=== PATIENT | female | born 1970 | race Two or more races ===

== ENCOUNTER 2024-10-18 15:46 | Inpatient (IN) | payer BC, SELFPAY ==
--- NOTE | 2024-10-18 15:59 | XR_ITS ---
Examination: CT abdomen with intravenous contrast CT pelvis with intravenous contrast 2-D coronal reconstructions 2-D sagittal reconstructions Date and time of exam:October 18, 20247 hrs. Indications: Onset right lower abdominal pain and vomiting beginning 3 days ago. CTDI: vol (mGy) 11.9 DLP: (mGycm) 377 Technique: Multiple axial sections of the abdomen and pelvis have been obtained. 64 slice high-resolution scanner used. 3 mm axial sections have been obtained, post intravenous injection 60 cc Isovue-370 2-D sagittal, coronal reconstructions obtained. Low dose protocols were performed. One or more of the following dose reduction techniques were used; automated exposure control, adjustment of the mA and/or KV according to patient size, use of iterative reconstruction technique. Findings: No focal liver or splenic lesion Absent gallbladder No common bile duct stones No pancreatic or adrenal mass No renal process Fluid-filled enlarged inflamed appendix medial to the cecum, axial images 125 through 134 No pelvic abscess No pelvic mass Urinary bladder intact Impression: Acute appendicitis Negative for pelvic abscess
--- NOTE | 2024-10-18 16:00 | PD.EDRME ---
Rapid Medical Screening Exam RME Arrival date/time: 10/18/24 15:46 53-year-old female reports with complaints of right lower quadrant abdominal pain nausea and vomiting x 3 days Chief Complaint: General Adult/Misc Complain Time Seen by Provider: 10/18/24 15:53
[2024-10-18 16:04] VITALS: BP 132/85; PULSE 89; RESP 19; TEMP 37.1; O2SAT 97; BMI 33.6
[2024-10-18 16:12] LABS: Basophils # (Auto) 0.1 Thou/mm3 (0.0-0.2); Basophils % (Auto) 0 % (0-2.5); Eosinophils % (Auto) 0 % (0-10); Hematocrit 43.8 % (36.0-46.0); Hemoglobin 15.2 g/dL (12.0-16.0); Immature Granulocytes % (Auto) 0 % (0-0); Immature Granulocytes Auto 0.04 Thou/mm3 (0.00-0.00); Lymphocytes # (Auto) 1.3 Thou/mm3 (1.0-4.8); Lymphocytes % (Auto) 9 % (10-50); Mean Corpuscular HGB Conc 34.7 g/dl (31.0-37.0); Mean Corpuscular Hemoglobin 29.9 pg (25.0-35.0); Mean Corpuscular Volume 86 fL (80-100); Monocytes # (Auto) 0.7 Thou/mm3 (0.0-0.8); Monocytes % (Auto) 5 % (0-12); Neutrophils # (Auto) 12.1 Thou/mm3 (1.8-7.7); Neutrophils % (Auto) 85 % (37-80); Nucleated Red Blood Cell % 0 /100 WBC (0); Platelet Count 291 Thou/mm3 (140-440); RDW Standard Deviation 39.9 fL (36.4-46.3); Red Blood Count 5.09 Miln/mm3 (4.00-5.20); White Blood Count 14.3 Thou/mm3 (3.6-11.0)
[2024-10-18 16:41] LABS: Alanine Aminotransferase 10 U/L (10-49); Albumin/Globulin Ratio 1.7 (1.2-2.2); Alkaline Phosphatase 82 U/L (46-116); Anion Gap 8 (7-16); Aspartate Amino Transferase 10 U/L (0-34); BUN/Creatinine Ratio 19 Ratio (12-20); Bilirubin,Total 1.9 mg/dL (0.3-1.2); Blood Urea Nitrogen 13 mg/dL (9-23); Carbon Dioxide 27.4 mMol/L (20.0-31.0); Chloride 104 mMol/L (98-107); Creatinine (Component) 0.7 mg/dL (0.6-1.3); Estimated Creatinine Clearance 87.4 mL/min (>60); Globulin 2.9 gm/dL (2.3-3.5); Glucose 127 mg/dL (74-106); Osmolality,Calculated 279 (275-295); Potassium 4.4 mMol/L (3.4-5.1); Sodium 139 mMol/L (136-145); Total Protein 7.9 gm/dL (5.7-8.2); eGFR > 60 See Note
[2024-10-18 17:05] LABS: Collection Type, Urine Clean Catch; RBC,Urine 0 /hpf (0-3); Squamous Epithelial Cell,Urine 0 /hpf (0-5); WBC,Urine 0 /hpf (0-5)
[2024-10-18 17:26] LABS: Bilirubin,Urine Negative (Negative); Blood,Urine 1+ (Negative); Clarity,Urine Turbid (Clear/Hazy); Color,Urine Yellow (Lt Yel-Yel); Culture Indicated,Urine Not Indicated; Glucose, Urine Trace (Negative); Ketones,Urine 4+ (Negative); Leukocyte Esterase,Urine Negative (Negative); Nitrite,Urine Negative (Negative); Protein,Urine 1+ (Neg - Trace); Specific Gravity,Urine 1.032 (1.001-1.035)
--- NOTE | 2024-10-18 19:43 | PD.EDADULT ---
ED General RME/HPI General Chief complaint: General Adult/Misc Complain Stated complaint: SENT BY PCP TO R/O APPENDICITIS Time Seen by Provider: 10/18/24 15:53 Source: patient Arrival date/time: 10/18/24 15:46 Mode of arrival: ambulatory Limitations: no limitations RME / HPI RME / HPI narrative: 10/18/24 15:46 53-year-old female reports with complaints of right lower quadrant abdominal pain nausea and vomiting x [address] Balbuena?s Main ED Evaluation: 53-year-old female with a history of gallstones, status post cholecystectomy, presents with right lower quadrant pain since Friday. She describes the pain initially as hard cramping, which worsened on Friday, accompanied by nausea. This morning, she awoke with persistent pain that had not subsided, followed by vomiting, prompting her to seek medical evaluation. She reports decreased oral intake due to a lack of appetite. She denies any left-sided pain. She rates her pain as 7-8/10. Notable allergy to sulfa. Related Data Allergies Allergy/AdvReac Type Severity Reaction Status Date / Time Sulfa (Sulfonamide Allergy Mild SWOLLEN Verified 10/18/24 15:50 Antibiotics) LIPS Review of Systems Review of Systems Systems Reviewed: All systems reviewed, normal except as documented Past Medical History Social History SMOKING STATUS: Former smoker ED Exam Narrative Physical exam: GENERAL APPEARANCE: alert and oriented x 4, well-developed, well-nourished, no acute distress VITALS: All vitals were reviewed and the pulse ox is 97% on room air, which is normal according to my interpretation. HEENT: Normocephalic, atraumatic; pupils equal, round, reactive to light; EOMI; mucous membranes pink, moist; oropharynx clear NECK: Supple LUNGS: CTABL; no wheezes, no rales, no rhonchi HEART: Regular rate, regular rhythm; normal S1, S2; no murmurs ABDOMEN: non distended; normal BS; soft, moderate to severe tenderness on palpation over McBurney's point with voluntary guarding but no rebound tenderness; no masses, no organomegaly, no hernia BACK: no CVA tenderness EXTREMITIES: atraumatic; no edema NEUROLOGIC: awake; alert and oriented x4; cranial nerves II-XII grossly intact; no focal sensory or motor deficits PSYCHIATRIC: appropriate mood and affect SKIN: warm, dry, normal color; no rashes General Limitations: Present no limitations Course Quality Measures none Orders Category Date Time Status CT Screening NOW Care 10/18/24 16:00 Active Seeing Eye Dog Teacher STAT Care 10/18/24 19:54 Active Continuous Pulse Oximetry STAT Care 10/18/24 19:54 Completed EKG (ED ONLY) *Do not use* NOW Care 10/18/24 19:54 Active Insert IV STAT Care 10/18/24 19:54 Active NPO STAT Care 10/18/24 19:[address] abdomen pelvis w con Stat Exams 10/18/24 15:59 Completed EKG (ED Only) Stat Exams 10/18/24 19:54 Ordered XR chest 1V portable Stat Exams 10/18/24 19:57 Completed CBC Stat Lab 10/18/24 16:03 Completed CMP [Comprehensive Metabolic Panel] Stat Lab 10/18/24 16:03 Completed Lipase Stat Lab 10/18/24 16:03 Completed Magnesium Stat Lab 10/18/24 16:03 Completed Partial Thromboplastin Time Stat Lab 10/18/24 16:03 Completed Prothrombin Time with INR Stat Lab 10/18/24 16:03 Completed UA, C/S IF [Urinalysis, C/S if Indicated] Stat Lab 10/18/24 16:25 Completed HYDROmorphone INJ [Dilaudid Inj] Med 10/18/24 20:00 Active 0.5 mg IVP Q30MIN PRN Ondansetron Inj [Zofran Inj] Med 10/18/24 19:54 Discontinued 4 mg IV X1 ONE Piper/Tazo Inj [Zosyn Inj] 4.5 gm Med 10/18/24 21:16 Discontinued Sodium Chloride 0.9% (Pop) [NS 0.9% mini bag] 100 ml IV X1 Sodium Chloride 0.9% 1000 ml [Ns] 1,000 ml Med 10/18/24 19:54 Discontinued IV 999 mls/hr Vital Signs Vital signs: Vital Signs Temperature 98.7 F 10/18/24 16:04 Pulse Rate 89 10/18/24 16:04 Respiratory Rate 19 10/18/24 16:04 Blood Pressure 132/85 H 10/18/24 16:04 Pulse Oximetry (%) 97 10/18/24 16:04 Oxygen Delivery Method Room Air 10/18/24 16:04 [facility] Patient data External records reviewed:: None Clinical information provided by:: patient Social determinants that could affect healthcare access:: none Patient has the following chronic illnesses:: na How is presenting disease/condition affected by chronic disease/condition?: no chronic disease Evaluation data The following diagnostics were reviewed and interpreted by me:: lab results and radiology exam(s) Lab and/or radiology exams considered but not ordered:: na Interpretation Summary: CXR shows normal cardiac silhouette, normal sharp diaphragmatic edge, no infiltrates, normal costophrenic angles, according to my interpretation. [facility] Report Signed Patient: SHAKEEL WELCH Record#: [id number] Birthdate: 1970 Age/Sex: 53 / F Location: [facility] Attending Dr: Ordering Physician: Farzad Cano PA-C Date of Service: 10/18/24 Procedure(s): CT abdomen pelvis w con Accession Number(s): [id number] cc: Alexis Riggs MD; NO PRIMARY/FAMILY,PHYSICIAN; Farzad Cano PA-C~ Examination: CT abdomen with intravenous contrast CT pelvis with intravenous contrast 2-D coronal reconstructions 2-D sagittal reconstructions Date and time of exam:October 18, [id number] hrs. Indications: Onset right lower abdominal pain and vomiting beginning 3 days ago. CTDI: vol (mGy) 11.9 DLP: (mGycm) 377 Technique: Multiple axial sections of the abdomen and pelvis have been obtained. 64 slice high-resolution scanner used. 3 mm axial sections have been obtained, post intravenous injection 60 cc Isovue-370 2-D sagittal, coronal reconstructions obtained. Low dose protocols were performed. One or more of the following dose reduction techniques were used; automated exposure control, adjustment of the mA and/or KV according to patient size, use of iterative reconstruction technique. Findings: No focal liver or splenic lesion Absent gallbladder No common bile duct stones No pancreatic or adrenal mass No renal process Fluid-filled enlarged inflamed appendix medial to the cecum, axial images 125 through 134 No pelvic abscess No pelvic mass Urinary bladder intact Impression: Acute appendicitis Negative for pelvic abscess Dictated By: Alexis Riggs MD Signed By: <Electronically signed by Alexis Riggs MD in OV> 10/18/24 6021 Medications Medications considered but not ordered:: na Medication administrations:: Medication Administration History Hydromorphone HCl (Hydromorphone Inj 2 Mg/Ml Vial) 0.5 mg IVP Q30MIN PRN PRN Reason: PAIN Stop: 10/23/24 19:59 Last Admin: 10/18/24 21:28 Dose: 0.5 mg Documented By: Admin: 10/18/24 20:26 Dose: 0.5 mg Documented By: WO Discontinued Medications Sodium Chloride (Ns) 1,000 mls @ 999 mls/hr IV .Q1H1M ONE Stop: 10/18/24 20:54 Last Infusion: 10/18/24 21:17 Dose: Infused Documented By: Admin: 10/18/24 20:16 Dose: 999 mls/hr Documented By: WO Piperacillin Sod/Tazobactam (Sod 4.5 gm/ Sodium Chloride) 100 mls @ 200 mls/hr IV X1 ONE Stop: 10/18/24 21:45 Last Infusion: 10/18/24 21:59 Dose: Infused Documented By: Admin: 10/18/24 21:29 Dose: 200 mls/hr Documented By: WO Ondansetron HCl (Ondansetron Inj 2 Mg/Ml Inj 2 Ml) 4 mg IV X1 ONE; Protocol Stop: 10/18/24 19:55 Last Admin: 10/18/24 20:27 Dose: 4 mg Documented By: ROBERT as above, if any Consultations Consultation(s) initiated? (list below): Yes Consultation #1 (Physician, Specialty, Details): Discussed case with [Dr. Clay] from [general surgery] regarding [consultation]. Discussed patients ED course, exam findings, labs, and radiology results. Will admit the patient. Time: 22:07 Diagnosis Differential Diagnosis ED Complaint MDM: see narrative Most likely diagnosis given after review of the tests above:: acute appendicitis Admission Indicated Admission indicated?: indicated Explain why admission is indicated or not indicated:: Admission criteria met. Admission Request Was there a request for admission?: Yes Admission Attestation Admission request attestation: Discussed case with [] from Hospitalist service regarding admission. Discussed patients ED course, exam findings, labs, and radiology results. The Hospitalist [agrees,declines] to accept the patient for admission. Disposition Plan Disposition Plan: Admit Medical Decision Making MDM Narrative MDM Narrative: Differential diagnoses include acute appendicitis, tubo-ovarian abscess, ovarian torsion, and small bowel obstruction (SBO). Scribe Attestation: I, Brenden Brushang, am scribing for and in the presence of Dr. Balbuena. Provider Notation: Although this document has been carefully reviewed, there may still be some phonetic and other typographical errors. These errors are purely grammatical due to imperfections in the software program and should not be construed in any way to compromise the substance of the patient's medical care during this visit. Differential Diagnosis Differential Diagnosis: see narrative Medical Records Medical records reviewed: Yes I reviewed the patient's medical records. Lab Data Lab results reviewed: Yes I reviewed the patient's lab results. 10/18/24 16:03 10/18/24 16:03 Labs: Lab Results 10/18/24 10/18/24 Range/Units 16:03 16:25 WBC 14.3 H (3.6-11.0) Thou/mm3 RBC 5.09 (4.00-5.20) Miln/mm3 Hgb 15.2 (12.0-16.0) g/dL Hct 43.8 (36.0-46.0) % MCV 86 (80-100) fL MCH 29.9 (25.0-35.0) pg MCHC 34.7 (31.0-37.0) g/dl RDW Std Deviation 39.9 (36.4-46.3) fL Plt Count 291 (140-440) Thou/mm3 Neut % (Auto) 85 H (37-80) % Lymph % (Auto) 9 L (10-50) % Garfield % (Auto) 5 (0-12) % Eos % (Auto) 0 (0-10) % Baso % (Auto) 0 (0-2.5) % Neut # (Auto) 12.1 H (1.8-7.7) Thou/mm3 Lymph # (Auto) 1.3 (1.0-4.8) Thou/mm3 Garfield # (Auto) 0.7 (0.0-0.8) Thou/mm3 Eos # (Auto) 0.0 (0.0-0.5) Thou/mm3 Baso # (Auto) 0.1 (0.0-0.2) Thou/mm3 Immature Gran # (Auto) 0.04 H (0.00-0.00) Thou/mm3 Absolute Nucleated RBC 0.00 (0.00-0.00) Thou/mm3 Immature Gran % 0 (0-0) % Nucleated RBC % 0 (0) /100 WBC PT 11.5 (9.0-12.2) Seconds INR 1.1 (0.9-1.3) APTT 29.3 (22.0-36.0) Seconds Sodium 139 (136-145) mMol/L Potassium 4.4 (3.4-5.1) mMol/L Chloride 104 (98-107) mMol/L Carbon Dioxide 27.4 (20.0-31.0) mMol/L Anion Gap 8 (7-16) BUN 13 (9-23) mg/dL Creatinine 0.7 (0.6-1.3) mg/dL Estim Creat Clear Calc 87.4 (>60) mL/min eGFR > 60 (60 - ) See Note BUN/Creatinine Ratio 19 (12-20) Ratio Glucose 127 H (74-106) mg/dL Calculated Osmolality 279 (275-295) Calcium 10.0 (8.3-10.6) mg/dL Corrected Calcium 10.0 (8.5-10.1) mg/dL Magnesium 2.0 (1.6-2.6) mg/dL Total Bilirubin 1.9 H (0.3-1.2) mg/dL AST 10 (0-34) U/L ALT 10 (10-49) U/L Alkaline Phosphatase 82 (46-116) U/L Total Protein 7.9 (5.7-8.2) gm/dL Albumin 5.0 (3.5-5.0) gm/dL Globulin 2.9 (2.3-3.5) gm/dL Albumin/Globulin Ratio 1.7 (1.2-2.2) Lipase 48 (12-53) U/L Ur Collection Type Clean Catch Urine Color Yellow (Lt Yel-Yel) Urine Clarity Turbid A (Clear/Hazy) Urine pH 6.0 (5.0-7.0) Ur Specific [place] 1.032 (1.001-1.035) Urine Protein 1+ A (Neg - Trace) Urine Glucose (UA) Trace (Negative) Urine Ketones 4+ A (Negative) Urine Blood 1+ A (Negative) Urine Nitrite Negative (Negative) Urine Bilirubin Negative (Negative) Urine Urobilinogen (Auto) 2.0 (0.0-1.0) mg/dL Ur Leukocyte Esterase Negative (Negative) Urine RBC 0 (0-3) /hpf Urine WBC 0 (0-5) /hpf Ur Squamous Epith Cells 0 (0-5) /hpf Urine Bacteria None (None) Ur Culture Indicated? Not Indicated Radiology Data Radiology results reviewed: Yes I reviewed the patient's radiology results. Discharge Plan Plan Patient Disposition: Admit Acute Care w/in Hospital Disposition Comment: Admitted to Dr. Clay Prescriptions/Referrals Referrals: No Primary/Family,Physician [Primary Care Provider] - In 1 week Problem List Clinical Impression: Acute appendicitis Patient/Caregiver Discharge Instructions Print Language: Mohawk Stand Alone Forms: Marcele[employer] Award Info., Patient Portal Info Letter
--- NOTE | 2024-10-18 19:54 | EKG_ITS ---
[facility] Test Date: 2024-10-18 Pat Name: SHAKEEL WELCH Department: Room: - Gender: Female Tearer: : 1970 Requested By: Ambrocio Peterson Order Number: [id number] Reading MD: Ambrocio Peterson Measurements Intervals [place] Rate: 73 P: 49 MI: 147 QRS: 14 QRSD: 85 T: 45 QT: 384 QTc: 424 Interpretive Statements SINUS RHYTHM WITH OCCASIONAL SUPRAVENTRICULAR PREMATURE COMPLEXES NONSPECIFIC T-WAVE ABNORMALITY No previous ECG available for comparison /store/S0/[id number]/ecg/[id number].pdf
[2024-10-18 19:55] VITALS: BP 112/81; PULSE 83; RESP 16; TEMP 36.9; O2SAT 99
--- NOTE | 2024-10-18 19:57 | XR_ITS ---
Examination: AP chest single view Technique : AP portable upright chest single view Exam date and time: October 18, 2024 2001 hrs. Indications: Onset chest pain today. Findings: Normal heart size Fat pad at the right cardiophrenic angle No pneumonia or pulmonary edema. The osseous structures are intact Minor subsegmental atelectasis left lower lung zone Impression: Minor subsegmental atelectasis left lower lung zone
[2024-10-18] MEDS: SODIUM CHLORIDE 0.9% 1000 ML 1,000 ML 999 ML IV (20:16)
[2024-10-18 20:23] LABS: Lipase 48 U/L (12-53)
[2024-10-18 20:25] LABS: INR 1.1 (0.9-1.3); Prothrombin Time 11.5 Seconds (9.0-12.2)
[2024-10-18 20:26] LABS: Partial Thromboplastin Time 29.3 Seconds (22.0-36.0)
[2024-10-18] MEDS: HYDROmorphone INJ 2 MG/ML VIAL 0.5 MG IVP ×3 (20:26→23:27)
[2024-10-18] MEDS: ONDANSETRON INJ 2 MG/ML INJ 2 ML 4 MG IV (20:27)
[2024-10-18 21:00] VITALS: BP 122/78; PULSE 76; RESP 16; TEMP 36.9; O2SAT 96
[2024-10-18] MEDS: PIPER/TAZO INJ 4.5 GM in SODIUM CHLORIDE 0.9% (POP) 100 ML IV (21:29)
[2024-10-18 23:01] VITALS: BMI 34.4
[2024-10-18] MEDS: SODIUM CHLORIDE 0.9% 1000 ML 1,000 ML 125 ML IV (23:10)
[2024-10-19] VITALS (15 sets, daily range): BP systolic 96–133; BP diastolic 62–88; PULSE 77–91; RESP 15–20; TEMP 36.1–37; O2SAT 95–100
[2024-10-19] MEDS: MORPHINE SULF INJ 10 MG/ML VIAL 4 MG IVP (02:11)
[2024-10-19] MEDS: PIPER/TAZO INJ 3.375 GM in SODIUM CHLORIDE 0.9% (Popper) 50 ML IV ×3 (05:35→22:06)
--- NOTE | 2024-10-19 06:49 | PD.SURHP ---
HPI Date of Admission 10/18/24 22:17 HPI 53F presenting with abdominal pain. Patient reports symptoms began 2 days ago with pain at the umbilicus, gradually radiated to the right lower quadrant. Yesterday patient noted worsening pain as well as nausea/vomiting prompting her to seek care in ER. Workup is consistent with acute appendicitis Patient reports she had a colonoscopy within the last several years which she was told was normal PMH: None PSH: Cholecystectomy Meds: None Allergies: NKDA Social history non-smoker Family history: no known colorectal cancer Review of Systems Review of Systems ROS Unobtainable: All systems reviewed & no additional complaints except as documented Meds Home Medications and Allergies Home Medications ?Medication ?Instructions ?Recorded ?Confirmed ?Type No Known Home Medications 10/19/24 10/19/24 History Allergies Allergy/AdvReac Type Severity Reaction Status Date / Time Sulfa (Sulfonamide Allergy Mild SWOLLEN Verified 10/18/24 15:50 Antibiotics) LIPS Exam Vital Signs Temp Pulse Resp BP Pulse Ox O2 Del Method 97.0 F 87 17 96/62 97 Room Air 10/19/24 04:00 10/19/24 04:00 10/19/24 04:00 10/19/24 04:00 10/19/24 04:00 10/19/24 04:00 Constitutional Constitutional: no acute distress Routine Respiratory Exam Respiratory: Present no resp distress Routine Abdominal Exam Abdominal: Present soft and tenderness (Moderate right lower quadrant tenderness); Absent distended, rebound or guarding Results Results: Laboratory Laboratory results: results reviewed Results: Imaging CT scan - abdomen: report reviewed and image reviewed Assessment & Plan Plan 53F presenting with signs and symptoms of acute appendicitis. I explained that appendectomy is not mandatory but that it can lead to a quicker recovery than antibiotics alone. I explained benefits/risks of surgery including need for conversion to open, bleeding, infection, inability to safely remove the appendix, bowel obstruction and hernia. All questions were answered and patient is agreeable to proceeding Quality Measures Quality Measures none
[2024-10-19] MEDS: KETOROLAC INJ 30 MG/ML VIAL 15 MG IVP ×3 (07:42→20:35)
--- NOTE | 2024-10-19 09:51 | ESOP_ITS ---
Date of Procedure 10/19/24 Pre Op Diagnosis Acute appendicitis Post Op Diagnosis Perforated appendicitis Procedure Laparoscopic appendectomy, washout, drain placement Findings Perforated appendix Procedure Description After discussion of risks and benefits, patient was brought to the operating room, SCDs were placed and general anesthesia was induced. She had already received preoperative antibiotics and urinated immediately prior to entering the operating room. She was prepped and draped in usual sterile fashion. After timeout an infraumbilical incision was made and the skin was elevated. Veress needle was placed through the incision and proper positioning was confirmed with a drop test. The abdomen was insufflated to 15 mmHg at which point the Veress was exchanged for a 5 mm camera using a Visiport technique. There were no signs of injury from the point of entry. 2 additional ports were placed under direct vision, one 5 mm suprapubic region and one about 5 mm left lower quadrant. The infraumbilical port was upsized to a 12 mm also under direct vision. Patient was placed in Trendelenburg with left side down. The appendix was identified by tracing the tinea of the colon and was noted to have a perforation at the mid aspect with expression of purulent material. A window was made between the base of the appendix and the mesoappendix using blunt dissection and the base of the appendix was stapled using 45 mm blue load. The mesoappendix was transected with harmonic scalpel. The area was gently irrigated and there were no signs of bleeding. The pelvis was also gently irrigated and was noted to have a bit of serosanguineous drainage. Given the expression of pus from the appendix I opted to place a 15 Indian drain into the right paracolic gutter. It was placed through the left lower quadrant port and sutured with a 2-0 nylon. The specimen was removed in an Endo Catch bag via the infraumbilical port and the infraumbilical fascia was closed with a 0 Vicryl suture using a Dat-Jerry. Pneumoperitoneum was released. Incisions were irrigated and infiltrated with half percent Marcaine for a total of 30 cc. Incisions were closed with 4 Monocryl and reinforced with Dermabond. Patient was extubated and brought to PACU in stable condition Pathology / specimen Other (Gallbladder) Estimated Blood Loss 25 Surgeon Judy Clay MD Surgical Staff Operation Date: 10/19/24 08:30 Case Staff Anesthesiologist: Richard,Diallo B dry house attendant: Trinity Nuñez
--- NOTE | 2024-10-19 10:03 | SUR.PHASEI ---
1003 Patient arrived to recovery resting comfortably in [facility], on oxygen 8L via oxy mask with an oral airway in place, breathing unlabored, vital signs stable, dressing intact to abdomen; dermabond x2 ports, no bleeding noted, BLANCA drain 15F round with sutures and drain sponge with medipore tape to left, lower, lateral abdomen, seroosanguineous fluid present to drain, lung sounds clear upon auscultation, bilateral radial pulses present when palpated, report received from Mitchell FLORIAN and Martín MAZNO
[2024-10-19] MEDS: fentaNYL CIT INJ 50 mCg/ML AMP 2ML IV (10:31)
[2024-10-19] MEDS: ACETAMINOPHEN IVPB 1,000 MG/100 ML VIAL 250 MG IV (10:33)
--- NOTE | 2024-10-19 11:06 | SUR.PHASEI ---
1103 Report given to Mile MANZO, patient meets discharge criteria from recovery, awake and alert, talking with staff, breathing unlabored, vital signs stable, denies pain, dressing intact; no bleeding noted, BLANCA drain in place with serosanguineous fluid present, patient drinking 7up tolerating well, denies nausea. 1106 Patient transported via gurney to room 365 without incident, patient able to ambulate from rney to bed with steady gait, this adjusto writer operator standby- patient did not require assistance, Mile MANZO promptly arrived in patient room, patient resting comfortably in bed with call light in reach when this adjusto writer operator left patients room
--- NOTE | 2024-10-19 16:14 | PC.SS ---
Patient is alert/oriented. Patient confirmed demographics. Patient states she resides with her spouse. Admitted for acute appendicitis. Prior to hospitalization patient was independent with ADLs. Patient did not use any DME. Patient plans on returning home upon discharge. Patient pharmacy: [facility]. PCP: Patient new in [facility]. She states she wants to return to [facility] and get re-established. Patient spouse, Garrett, is the alt medical decision maker. No further d/ needs.
[2024-10-19] MEDS: HYDROcodone/APAP 5/325 TABLET 1 TAB PO ×2 (18:30→22:18)
[2024-10-20] MEDS: HYDROcodone/APAP 10/325 TAB PO ×2 (01:33→06:03)
[2024-10-20] MEDS: SIMETHICONE 80 MG CHEW PO ×2 (01:33→06:03)
[2024-10-20 04:00] VITALS: BP 103/76; PULSE 76; RESP 18; TEMP 36.7; O2SAT 97
[2024-10-20] MEDS: PIPER/TAZO INJ 3.375 GM in SODIUM CHLORIDE 0.9% (Popper) 50 ML IV (05:45)
[2024-10-20 08:00] VITALS: BP 135/76; PULSE 78; RESP 18; TEMP 36.3; O2SAT 96
--- NOTE | 2024-10-20 08:09 | PD.SURPROG ---
Documentation for date of: 10/20/24 Subjective Subjective Brief History: 53F presenting with abdominal pain. Patient reports symptoms began 2 days ago with pain at the umbilicus, gradually radiated to the right lower quadrant. Yesterday patient noted worsening pain as well as nausea/vomiting prompting her to seek care in ER. Workup is consistent with acute appendicitis Patient reports she had a colonoscopy within the last several years which she was told was normal PMH: None PSH: Cholecystectomy Meds: None Allergies: NKDA Social history non-smoker Family history: no known colorectal cancer Narrative: Pain controlled, no nausea, tolerating liquids and had a BM this morning, remaining afebrile with 10cc BLANCA output total Exam Vital Signs Temp Pulse Resp BP Pulse Ox O2 Del Method O2 Flow Rate 98.1 F 76 18 103/76 97 Room Air 4 10/20/24 04:00 10/20/24 04:00 10/20/24 04:00 10/20/24 04:00 10/20/24 04:00 10/20/24 04:00 10/19/24 10:18 Constitutional Constitutional: no acute distress Routine Respiratory Exam Respiratory: Present no resp distress Routine Abdominal Exam Abdominal: Present soft and drain (BLANCA with scant sanguinous output); Absent tenderness or distended Results Results: Laboratory Laboratory results: results reviewed Results: Imaging CT scan - abdomen: report reviewed and image reviewed Assessment & Plan Plan 53F presenting with signs and symptoms of acute appendicitis s/p lap appendectomy 3, recovering well Will dc BLANCA given minimal output DC plan for today Procedures Procedures Laparoscopic appendectomy, washout, drain placement
--- NOTE | 2024-10-20 08:11 | ESDS_ITS ---
Planned Discharge Date 10/20/24 DS: Providers Provider Date of admission: 10/18/24 22:17 Primary care physician: Physician No Primary/Family Admitting Provider: Judy Clay MD Attending Provider on Admission: Judy Clay MD Attending Provider on DC: Judy Clay MD Discharging Provider: Judy Clay MD Diagnosis Discharge Diagnosis (1) Acute perforated appendicitis: Status: Acute Problem List Completed Was Problem List Reviewed/Reconciled?: Yes Exam Vital Signs Temp Pulse Resp BP Pulse Ox O2 Del Method O2 Flow Rate 98.1 F 76 18 103/76 97 Room Air 4 10/20/24 04:00 10/20/24 04:00 10/20/24 04:00 10/20/24 04:00 10/20/24 04:00 10/20/24 04:00 10/19/24 10:18 Discharge Plan Plan Patient Disposition: HOME (Self Care) Disposition Comment: Admitted to Dr. Clay Prescriptions/Referrals Prescriptions/Med Rec: New oxycodone-acetaminophen [Endocet] 5-325 mg tablet 1 tab PO Q6H MDD 6 tabs PRN (Reason: pain) Qty: 10 0RF amoxicillin-pot clavulanate 875-125 mg tablet 1 tab PO Q12H Qty: 8 0RF Referrals: Judy Clay MD [Physician] - (You will receive a phone call to confirm a follow-up appt with me in 2 weeks) No Primary/Family,Physician [Primary Care Provider] - Patient/Caregiver Discharge Instructions Other Discharge Activity Instructions:: Avoid lifting objects >10lbs for 6 weeks Your incisions have skin glue on them which will fall off on its own and does not need to replaced Your stitches will not need to be removed You may resume showering on 10/21/24 Avoid bathing or swimming for 2 weeks If you develop worsening pain, nausea/vomiting or fever please seek care in ER Education Materials: Appendectomy Laparoscopic Dc, Preventing Surgical Site Infections Print Language: Occitan Stand Alone Forms: Marcelle Award Info., Patient Portal Info Letter Discharge Order Discharge Orders: Discharge (Routine); Ordered 10/20/24 Ordered By: Judy Clay Results Results: Laboratory Laboratory results: results reviewed Results: Imaging CT scan - abdomen: report reviewed and image reviewed Procedures Procedures Laparoscopic appendectomy, washout, drain placement
== END 2024-10-20 10:46 | disposition home or self-care (01) | DRG 399 ==
LOC: SERX 22:09 → SERHOLD 22:21 → S3NX 23:04
PROVIDERS: Physician Assistant; Admitting Provider Surgery; Emergency Provider Emergency Medicine; Visit Provider Surgery
PROC: 0DTJ4ZZ Resection of Appendix, Percutaneous Endoscopic Approach (ICD-10-PCS; CPT 44970; principal; 2024-10-19 08:15)
DX: K35.32 Acute appendicitis with perforation, localized peritonitis, and gangrene, without abscess (principal); Z90.49 Acquired absence of other specified parts of digestive tract; Z87.891 Personal history of nicotine dependence; Z88.2 Allergy status to sulfonamides
CPT/HCPCS: 36415; 71045; 74177; 80053; 81001; 83690; 83735; 85025; 85610; 85730; 96361; 96365; 96375; 99285; A4217; A4649; J0131; J1100; J1885; J2250; J2270; J2405; J2543; J2704; J3010; J3490; J7030; J7050; Q9967; A9270